=== PATIENT | female | born 1995 | race Caucasian/White ===

== ENCOUNTER 2017-08-04 11:17 | Emergency (ER) | payer OTHER ==
--- NOTE | 2017-08-04 11:47 | CPEKG ---
Heart Rate: 67 RR Interval: 896 P-R Interval: 144 QRSD Interval: 88 QT Interval: 404 QTC Interval: 427 P [place]: 75 QRS [place]: 90 T Wave [place]: 58 EKG Severity - BORDERLINE ECG - EKG Impression: SINUS ARRHYTHMIA, RATE 54-83 EKG Impression: CONSIDER RIGHT VENTRICULAR HYPERTROPHY Electronically Signed By: Jak Bonner 05-Aug-2017 14:25:41
--- NOTE | 2017-08-04 12:04 | EDPHY ---
HPI/HX/ROS/PE/MDM Narrative: CHIEF COMPLAINT: Palpitations, chest tightness HPI: The patient is a 22 y/o female with a history of PVCs arriving with her family member complaining of intermittent palpitations for the last 3 weeks that became more pronounced and associate with pain over the last 3 days. Normally her palpitations feel "just like a skip," but over the last three days they have become more prominent and more frequent with associated chest discomfort during the palpitation. She says, "my heart has felt like it's being squeezed" and her chest aches while palpitations are absent. Symptoms are more noticeable when lying flat in bed, lifting something heavy, or running upstairs. She occasionally has associated lightheadedness during palpitations. She does not use caffeine or other stimulants. Grandparents had cardiac issues including a grandfather with HOCM. She had a normal echocardiogram age 13 to screen for this. REVIEW OF SYSTEMS: Aside from elements discussed in the HPI, a comprehensive 10-point review of systems was reviewed and is negative. PMH: PVCs FAMILY HISTORY: Grandfather with HOCM. Heart valve replacements in grandparents. Grandmother from [place]. SOCIAL HISTORY: Family member at bedside. From [place]. [employer] student. PHYSICAL EXAM: General:Patient is alert, in no acute distress. ENT:Eyes are normal to inspection. ENT inspection normal. Neck: Normal inspection. Full range of motion. Respiratory:No respiratory distress. Breath sounds normal bilaterally. Cardiovascular: Regular rate and rhythm. Strong peripheral pulses. Normal cap refill. Abdomen:The abdomen is nontender to palpation. There are no peritoneal signs. Back: Normal to inspection. No tenderness to palpation. Skin: Normal color. No rash. Warm and dry. Extremities: Normal appearance. Full range of motion. Neuro: Oriented x3. Normal motor function. Normal sensory function. ED Course: This is a 22 y/o female with a history of PVCs and family history of HOCM who presents with 3 weeks of noticeable palpitations worsening and associated with chest pain over the last 3 days. Her exam is normal and she is asymptomatic currently. Plan for IV, labs, EKG, chest x-ray, and echocardiogram to assess for cardiac causes. The 12 lead EKG was interpreted by myself. Sinus mechanism. See hard copy and/ or "tracemaster" electronic copy for interpretation. Chest x-ray: negative. Labs normal. Preliminary echocardiogram is normal. Reassessed patient and discussed findings. She is feeling well and will be discharged home with referral to meat service team member for follow up. Return precautions discussed. She is comfortable with this plan. MDM: This is a young female who presents with chest tightness that is worsened by exertion as well as increased palpitations. Given her family history of hypertrophic obstructive cardiomyopathy, we performed an echocardiogram which was negative and cardiac markers and EKG are also negative. Her pain is not pleuritic and there is no evidence of tachycardia or other symptoms to suggest PE. I think she is safe for discharge home and she agrees. We will give her referral to Cardiology. - Data Points Imaging Results: Imaging Impressions Chest X-Ray 08/04/17 12:09 Impression: Normal chest x-ray. Imaging: I viewed and interpreted images myself Laboratory Results: Laboratory Results 08/04/17 12:21 08/04/17 12:21 08/04/17 08/04/17 12:21 12:21 WBC 5.58 10^3/uL 10^3/uL (3.80-9.50) RBC 4.85 10^6/uL 10^6/uL (4.18-5.33) Hgb 14.9 g/dL g/dL (12.6-16.3) Hct 43.2 % % (38.0-47.0) MCV 89.1 fL fL (81.5-99.8) MCH 30.7 pg pg (27.9-34.1) MCHC 34.5 g/dL g/dL (32.4-36.7) RDW 12.6 % % (11.5-15.2) Plt Count 246 10^3/uL 10^3/uL (150-400) MPV 10.1 fL fL (8.7-11.7) Neut % (Auto) 68.4 % % (39.3-74.2) Lymph % (Auto) 22.0 % % (15.0-45.0) [place] % (Auto) 5.7 % % (4.5-13.0) Eos % (Auto) 2.5 % % (0.6-7.6) Baso % (Auto) 0.9 % % (0.3-1.7) Nucleat RBC Rel Count 0.0 % % (0.0-0.2) Absolute Neuts (auto) 3.81 10^3/uL 10^3/uL (1.70-6.50) Absolute Lymphs (auto) 1.23 10^3/uL 10^3/uL (1.00-3.00) Absolute Monos (auto) 0.32 10^3/uL 10^3/uL (0.30-0.80) Absolute Eos (auto) 0.14 10^3/uL 10^3/uL (0.03-0.40) Absolute Basos (auto) 0.05 10^3/uL 10^3/uL (0.02-0.10) Absolute Nucleated RBC 0.00 10^3/uL 10^3/uL (0-0.01) Immature Gran % 0.5 % % (0.0-1.1) Immature Gran # 0.03 10^3/uL 10^3/uL (0.00-0.10) Sodium 143 mEq/L mEq/L (135-145) Potassium 4.3 mEq/L mEq/L (3.5-5.2) Chloride 104 mEq/L mEq/L (97-110) Carbon Dioxide 28 mEq/l mEq/l (22-31) Anion Gap 11 mEq/L mEq/L (8-16) BUN 9 mg/dL mg/dL (7-23) Creatinine 0.7 mg/dL mg/dL (0.6-1.0) Estimated GFR > 60 Glucose 81 mg/dL mg/dL (70-100) Calcium 9.3 mg/dL mg/dL (8.5-10.4) Troponin I < 0.012 ng/mL ng/mL (0.000-0.034) General Time Seen by Provider: 08/04/17 11:29 Initial Vital Signs: Initial Vital Signs Temperature (C) 36.7 C 08/04/17 11:19 Heart Rate 57 L 08/04/17 11:19 Respiratory Rate 18 08/04/17 11:19 Blood Pressure 122/83 H 08/04/17 11:19 O2 Sat (%) 100 08/04/17 11:19 O2 Delivery Mode Room Air Allergies/Adverse Reactions: No Known Allergies Allergy (Verified 02/20/16 21:13) Home Medications: Medication Instructions Recorded Sertraline HCl 10/22/16 Departure - Departure Disposition: Home, Routine, Self-Care Clinical Impression: Chest pain, Palpitations Condition: Good Instructions: Chest Pain (ED), Heart Palpitations (ED) Additional Instructions: Follow up with meat service team member next week. Return to the ED for worsening of condition. Referrals: MARC BACK [Other] - As per Instructions Millie Grant MD [Medical Doctor] - As per Instructions Stand Alone Forms: Work Excuse Report Scribed for: Jak Bonner Report Scribed by: Paige Lopez Date of Report: 08/04/17 Time of Report: 13:05 Physician Review and Approval Statement: Portions of this note were transcribed by an ED scribe. I personally performed the history, physical exam, and medical decision making; and confirm the accuracy of the information in the transcribed note.
[2017-08-04 12:31] LABS: PLATELET COUNT 246 10^3/uL (150-400)
[2017-08-04 13:35] VITALS: BP 111/70
--- NOTE | 2017-08-04 16:08 | ECHO ---
[email or web address] [address] Main: [phone] Fax: Transthoracic Echocardiogram Name: BRENDA VILLAGRAN MR#: [id number] Study Date: 08/04/2017 Study Time: 12:41 PM Date of : 1995 Age: 22 year(s) Height: 167.6 cm (66 in.) Weight: 49.9 kg (110 lb.) BSA: 1.55 m2 Gender: Female Examination: Limited Echo Indication: Chest Pain, Family history of HOCM Image Quality: Contrast: Requested by: Jak Bonner BP: 122 mmHg/83 mmHg Heart Rate: Rhythm: Normal sinus rhythm Indication: Chest Pain, Family history of HOCM Procedure Staff Senior Web Applications Developer: Juan Pablo Coronado RDCS Reading Physician: Millie Grant MD Requesting Provider: Conclusions: This is a limited echo to evaluate for HOCM. There is no evidence of a hypertrophic cardiomyopathy. The IVSd is .7cm. There is no acceleration of flow or obstruction in the LVOT. Normal LV systolic function without regional wall motion abnormalities . No prior echo Measurements: Chambers Valvular Assessment AV/MV Valvular Assessment TV/PV Normal Normal Normal Name Value Range Name Value Range Name Value Range Ao Keily (MM): 2.7 cm (2.2 cm-3.7 AV Vmax: 1.22 m/s (1 m/s-1.7 cm) m/s) IVSd (2D): 0.7 cm (0.6 cm-1.1 AV maxP mmHg ( - ) cm) MV E Vmax: 0.91 m/s ( - ) LVDd (2D): 4.2 cm (3.9 cm-5.3 MV A Vmax: 0.36 m/s ( - ) cm) MV E/A: 2.53 ( - ) LVDs (2D): 2.4 cm (2.1 cm-4 cm) LVPWd (2D): 0.8 cm ( - ) LVEF (2D): 75 (>=54 %) Continued Measurements: Valvular Assessment AV/MV Name Value MV E/E' Septal: 8.60 Findings: Exam Comments: Patient: BRENDA VILLAGRAN Study Date: 08/04/2017 Page 1 of 2 12:41 PM This is a limited echo to evaluate for HOCM. There is no evidence of a hypertrophic cardiomyopathy. The IVSd is .7cm. There is no acceleration of flow or obstruction in the LVOT. Normal LV systolic function without regional wall motion abnormalities . (No Signature Object) Patient: BRENDA VILLAGRAN Study Date: 08/04/2017 Page 2 of 2 12:41 PM [id number]
== END 2017-08-04 13:42 | disposition home or self-care (01) ==
DX: R00.2 Palpitations (principal); R07.9 Chest pain, unspecified